=== PATIENT | female | born 1955 | race Caucasian/White ===

== ENCOUNTER 2019-06-02 13:57 | Observation (INO) | payer OTHER ==
[2019-06-02] MEDS ORDERED: NS 0.9% 1000 ML** 1,000 ML IV ONE (14:11)
[2019-06-02] MEDS ORDERED: Piperacillin/Tazobac ADVAN(*) 3.375 GM in NS 0.9% 100 ML* 100 ML IVPB ONE (14:11)
--- NOTE | 2019-06-02 14:23 | ED ---
Abdominal Pain/Female - HPI Summary HPI Summary: This patient is a 63 year old F presenting to [facility] accompanied by with a chief complaint of abdominal pain since 1406. Patient states that she has RLQ pain that radiates to the center of her stomach and over to her LLQ. Patient states that she was sent here by Dr. Amor to be sent to the OR with a dx of appendicitis. The patient rates the pain 6/10 in severity. Symptoms aggravated by nothing. Symptoms alleviated by nothing. Patient reports RLQ tenderness and diaphoresis. Patient denies fever. Allergies Allergy/AdvReac Type Severity Reaction Status Date / Time No Known Allergies Allergy Verified 06/02/19 14:08 - History of Current Complaint Chief Complaint: EDAbdPain Stated Complaint: ABDOMINAL PAIN PER PT Time Seen by Provider: 06/02/19 14:08 Hx Obtained From: Patient, Family/Python Programmer - ?: No Onset/Duration: Sudden Onset, Lasting Minutes - 1406, Still Present Timing: Constant Severity Currently: Moderate Pain Intensity: 6 Pain Scale Used: 0-10 Numeric Location: Diffuse, Discrete At: RUQ Radiates: Yes Radiates to: LLQ Character: Sharp Aggravating Factor(s): Nothing Alleviating Factor(s): Nothing Associated Signs and Symptoms: Positive: Diaphoresis. Negative: Fever Allergies/Adverse Reactions: Allergies Allergy/AdvReac Type Severity Reaction Status Date / Time No Known Allergies Allergy Verified 06/02/19 14:08 Home Medications: Home Medications Simvastatin TAB(NF) [Zocor(NF)] 20 mg PO BEDTIME 06/02/19 [History Confirmed ] PMH/Surg Hx/FS Hx/Imm Hx Sensory History: Denies: Hx Legally Blind, Hx Deafness Opthamlomology History: Denies: Hx Legally Blind EENT History: Denies: Hx Deafness - Surgical History Surgical History: None Infectious Disease History: No Infectious Disease History: Denies: Traveled Outside the [place] in Last 30 Days - Family History Known Family History: Positive: Other - dementia Negative: Hypertension, Diabetes, Blood Disorder - Social History Alcohol Use: Occasionally Substance Use Type: Reports: None Hx Tobacco Use: No Review of Systems Positive: Skin Diaphoresis. Negative: Fever Positive: Abdominal Pain - RLQ All Other Systems Reviewed And Are Negative: Yes Physical Exam - Summary Physical Exam Summary: Constitutional: Well-developed, Well-nourished, Alert. (-) Distressed Skin: Warm, Dry HENT: Normocephalic; Atraumatic Eyes: Conjunctiva normal Neck: Musculoskeletal ROM normal neck. (-) JVD, (-) Stridor, (-) Tracheal deviation Cardio: Rhythm regular, rate normal, Heart sounds normal; Intact distal pulses; The pedal pulses are 2+ and symmetric. Radial pulses are 2+ and symmetric. (-) Murmur Pulmonary/Chest wall: Effort normal. (-) Respiratory distress, (-) Wheezes, (-) Rales Abd: Soft, RLQ tenderness, (-) Distension, (-) Guarding, (-) Rebound Musculoskeletal: (-) Edema Lymph: (-) Cervical adenopathy Neuro: Alert, Oriented x3 Psych: Mood and affect Normal Triage Information Reviewed: Yes Vital Signs On Initial Exam: Initial Vitals Temp Pulse Resp BP Pulse Ox 100.4 F 103 18 151/79 98 06/02/19 14:07 06/02/19 14:07 06/02/19 14:07 06/02/19 14:07 06/02/19 14:07 Vital Signs Reviewed: Yes Diagnostics - Vital Signs Vital Signs Temp Pulse Resp BP Pulse Ox 06/02/19 14:07 100.4 F 103 18 151/79 98 - Laboratory Lab Statement: Any lab studies that have been ordered have been reviewed, and results considered in the medical decision making process. Abdominal Pain Fem Course/Dx - Course Course Of Treatment: Patient was sent to the ED to be sent to the OR by Dr. Amor with a Dx of Appendicitis. - Diagnoses Provider Diagnoses: Appendicitis Discharge ED - Sign-Out/Discharge Documenting (check all that apply): Patient Departure - admit Patient Received Moderate/Deep Sedation with Procedure: No - Discharge Plan Condition: Stable Disposition: ADMITTED TO [facility] - Attestation Statements Document Initiated by Scribe: Yes Documenting Scribe: Marianne Begum Provider For Whom Scribe is Documenting (Include Credential): Dr. Maged Us MD Scribe Attestation: Marianne Santacruz, scribed for Dr. Maged Us MD on 06/02/19 at 1835. Status of Scribe Document: Ready
[2019-06-02] MEDS ORDERED: HYDROmorphone INJ* 0.5 MG/0.5 ML SYRINGE IV SLOW PU PRN (15:11)
[2019-06-02] MEDS ORDERED: Ondansetron INJ* 2 MG/ML VIAL IV PRN (15:11)
[2019-06-02] MEDS ORDERED: NS 0.9% 1000 ML** 1,000 ML IV SCH (15:15)
--- NOTE | 2019-06-02 16:42 | HP ---
HISTORY AND PHYSICAL: DATE OF ADMISSION: 06/02/19 ATTENDING PHYSICIAN: Dr. Scott Amor.* (DICTATED BY ARIANA GILLILAND PA-C) HISTORY OF PRESENT ILLNESS: The patient presented to the emergency room at [facility] after being seen in [facility] and being referred to Dr. Amor's office for a complaint of right lower quadrant pain, nausea, recent onset consistent with appendicitis. The patient originally rated her symptomatology as 8/10. The patient currently reports her symptomatology at 6/ 10 in severity. The patient has reported nausea mildly last evening, this morning complained of nausea with accompanying periumbilical pain and right lower quadrant pain. Onset was gradual. The course is continuous. The characterization was a sharp consistent pain. Degree at onset was 8/10, degree now is 6/10 on a 10 scale. Location limited to the McBurney's point in the right lower quadrant. Pain does not seem to radiate. Nothing exacerbates it and nothing relieves it. She has not eaten since dinner last night. She is from [place] and is traveling with her who is at bedside. PAST SURGICAL HISTORY: No history of previous surgeries. COMPOUND SPECIALIST HISTORY: The patient reports menopause into her mid 50s. MEDICATIONS: Currently takes a statin for hypercholesterolemia. ALLERGIES: The patient reports no known drug allergies. SOCIAL HISTORY: Denies smoking. Rarely uses alcohol. Denies recreational drug use. REVIEW OF SYSTEMS: Cardiovascular: Negative. Pulmonary: Negative. : Negative. Endocrine: Negative. Musculoskeletal: Negative. Neurological: Negative. Psychological: Negative. Hematological: No coagulable problems. No history of infectious diseases. GI + nausea, - vomit, + abdominal Pain RLQ The patient is currently n.p.o. PHYSICAL EXAMINATION GENERAL: Well-developed, well-nourished female, looks her appropriate age, in no acute distress [facility]. VITAL SIGNS: On admission to the emergency department, temp 100.4, pulse 103, respirations 18, BP 151/79, pulse ox 98% on room air. HEENT: Normocephalic, atraumatic. no icterus. NECK: Trachea midline. Supple. CHEST: Clear to auscultation bilaterally. CVS: tachycardic rate and rhythm ABDOMEN: Nondistended. Soft There is positive tenderness at McBurney's point in the right lower quadrant to deep palpation. Negative Licea's. Hypoactive bowel sounds. No referred pain. MUSCULOSKELETAL: Moves all extremities with full range of motion. Calves are soft bilaterally. NEURO: Alert and oriented x3. PSYCH: Normal mood and affect. SKIN: Warm and dry. DIAGNOSTIC STUDIES/LAB DATA: Laboratory studies showed white count of 6.8. CT scan done at [facility] reportedly was consistent with acute appendicitis. ASSESSMENT: A 63-year-old white female with CT findings and physical examination findings consistent with acute appendicitis. PLAN: 1. The patient will continued to be n.p.o. 2. IV fluids normal saline at 150 cc per hour. 3. IV Zosyn. 4. The patient will be admitted, transferred to the surgical care unit until surgery by Dr. Amor, for a laparoscopic appendectomy . Continue n.p.o. status, IV pain management. The above discussed with Dr. Amor. TIME SPENT: A total of 60 minutes was spent reviewing laboratory studies, examining the patient, and coordination of care. ARIANA GILLILAND PA-C [id number]/[facility] #: [id number] GUY
[2019-06-02] MEDS ORDERED: Buffered Lidocaine 1% SYRIN* 1 ML/SYRINGE INTRADERM ONE (19:31)
[2019-06-02] MEDS ORDERED: Lactated Ringers 1000 ML Bag* 1,000 ML IV SCH (20:00)
[2019-06-03] MEDS ORDERED: Famotidine IV* 10 MG/ML 2 ML (20 mg) ONE (00:08)
[2019-06-03] MEDS ORDERED: Midazolam* 1 MG/ML 2 ML VIAL (2 MG) ONE (00:09)
[2019-06-03] MEDS ORDERED: Propofol* 10 MG/ML 20 ML BTL ONE (00:09)
[2019-06-03] MEDS ORDERED: Ondansetron INJ* 2 MG/ML VIAL ONE (00:09)
[2019-06-03] MEDS ORDERED: Dexamethasone IV* 4 MG/ML 1 ML (4 MG) ONE (00:09)
[2019-06-03] MEDS ORDERED: Succinylcholine* 20 MG/ML 10 ML VIAL ONE (00:09)
[2019-06-03] MEDS ORDERED: fentaNYL* 50 MCG/ML 2 ML VIAL (100 MCG VIAL) ONE ×2 (00:09→02:15)
[2019-06-03] MEDS ORDERED: Cisatracurium* 2 MG/ML MDV 5 ML ONE (00:10)
[2019-06-03] MEDS ORDERED: Lidocaine 2% PF * 5 ML VIAL ONE (00:10)
[2019-06-03] MEDS ORDERED: Bupivacaine 0.25% W/EPI* 10 ML SDV ONE ×2 (00:30)
[2019-06-03] MEDS ORDERED: ZOSYN 3.375 GM x ONE DOSE over 30 miuntes IVPB ×2 (01:00)
[2019-06-03] MEDS ORDERED: HYDROcodone/ACETAMIN 5-325 MG* 1 TAB PO PRN (01:44)
[2019-06-03] MEDS ORDERED: fentaNYL* 50 MCG/ML 2 ML VIAL (100 MCG VIAL) IV PRN (01:44)
[2019-06-03] MEDS ORDERED: diPHENhydraMINE IV* 50 MG/ML 1 ml VIAL (BENADRYL) IV PRN (01:44)
[2019-06-03] MEDS ORDERED: DiMENhydriNATE IV* 50 MG/ML VIAL IV PUSH PRN (01:44)
[2019-06-03] MEDS ORDERED: Acetaminophen TAB* 325 MG PO PRN ×2 (01:44→08:16)
[2019-06-03] MEDS ORDERED: Naloxone* 0.4 MG/ML 1 ML VIAL IV PRN (01:44)
[2019-06-03] MEDS ORDERED: Ketorolac INJ* 30 MG/ML 1 ML VIAL ONE (02:29)
--- NOTE | 2019-06-03 02:29 | OP ---
Operative Report - Blank - Operative Report Date of Operation: 06/03/19 Note: Pre-OP Diagnoses: acute appendicitis Post-op Diagnosis: same Procedure: Laparoscopic appendectomy Surgeon: Mt Asst: none Anethesia: GETA EBL: minimal IVF: 1000ccLR Specimen: appendix Drains: none
[2019-06-03] MEDS ORDERED: NS 0.9% 1000 ML** 1,000 ML IV SCH (03:45)
--- NOTE | 2019-06-03 05:31 | OP ---
CC: [facility]; primary care doctor * DATE OF SURGERY: 06/03/19 - ROOM #[id number] DATE OF : 57 SURGEON: Scott Amor MD RATE SETTER: None. ANESTHESIOLOGIST: Dr. Steen. ANESTHESIA: General anesthesia. PRE-OP DIAGNOSIS: Acute appendicitis. POST-OP DIAGNOSIS: Acute appendicitis. PROCEDURE: Laparoscopic appendectomy. ESTIMATED BLOOD LOSS: Minimal. FLUIDS: Minimal crystalloid fluid given. SPECIMEN: Appendix. DRAINS: None. INDICATIONS: The patient is a 63-year-old female who I have seen in my office after she was discharged from the ER at [facility] to be evaluated. I recommended laparoscopic appendectomy after evaluation of diagnosis of acute appendicitis based on review of CAT scan and examination of the patient. The patient was sent to the emergency room for logistical purposes and was admitted to the hospital. She was started on a course of antibiotics. I outlined the details of the procedure going over the risks, benefits, and alternatives of laparoscopic appendectomy. Discussed the possible complications , which include but not limited to bleeding, infection, bowel injury, bladder injury, injury to adjacent organs, bleeding, infection, and need for additional surgeries or open procedure. The patient willingly signed consent. DESCRIPTION OF PROCEDURE: She was marked, taken to the preoperative room, placed on the operating table in supine position. Preoperative antibiotics were given. Sequential devices were placed on bilateral lower extremities. General anesthesia was induced. The patient's abdomen was prepped and draped in a standard surgical fashion. A time-out was performed. The folds of the umbilicus were elevated anteriorly, and a Veress needle was inserted into the abdominal cavity which was then allowed to insufflate to a pressure of 15 mmHg. The patient tolerated the insufflation well. A right upper quadrant incision was made and a 12-mm optical trocar was inserted. Laparoscope was then inserted through this. There was no evidence of injury from the trocar insertion or from the Veress needle, which were removed. Umbilical incision was made and a 5-mm trocar placed at this site. We shifted the camera here and then placed another 5-mm in the suprapubic area. These were all under direction vision. Review of the abdomen showed scant purulent fluid and appendix that was curled up and adhered to the distal ileum. It appeared nonperforated. This was grasped and a window made at the base of the appendix through healthy tissue and a 30 mm freedman HUE stapling device was fired across this area. We utilized cautery to dissect some of the mesoappendix at the base of the appendix and then took a 45 mm hutchison HUE stapling device for mesoappendix. Appendix was then placed in endoscopic retrieval bag. Review of the abdomen showed no bleeding or enteric contents. We suctioned out the scant fluid that was in the pelvis as well as in the right paracolic gutter. We looked over the liver, there is no fluid or at the left upper quadrant. That was positioned to neutral. The appendix was removed through an endoscopic retrieval bag through the right upper quadrant port site. The abdomen allowed to collapse and all 3 trocars removed under direct vision and these incisions closed with 4-0 Monocryl subcuticular sutures followed by Steri- Strips and sterile dressing. The patient tolerated the procedure well, was woken up in the OR. [id number]/[facility] #: [id number] [facility] CENT[facility]oxi
--- NOTE | 2019-06-03 08:36 | PN ---
Progress Note - Progress Note Date of Service: 06/03/19 SOAP: Subjective:hungry,minimal pain,voiding ,ambulating [] Objective: Vital Signs Temp 98.3 F 06/03/19 07:18 Pulse 93 06/03/19 07:18 Resp 16 06/03/19 08:06 BP 119/62 06/03/19 07:18 Pulse Ox 95 06/03/19 07:18 Intake & Output 06/02/19 06/03/19 06/03/19 18:59 06:59 18:59 Intake Total 2400 Output Total 100 1300 Balance -100 1100 Weight 150 lb Intake: IV Fluids 2160 NS (0.9%) 910 NS 100ML, Zosyn 3.375G 100 lr 1000 ns 100 zosyn 50 Oral 240 Output: Urine 100 1300 lungs:clear bilat;heart:RRR;abd:+bs,soft,appropriate incisional tenderness; incisions intact with steris,clean and dry;ext:nontender [] Assessment:POD#0 s/p laparoscopic appendectomy,doing well,wants to go home later ;tolerating reg diet;stable [] Plan:discharge home after lunch;she will followup with PCP in [place];she declines opioid rx,prefers to use Tylenol;instructions reviewed []
[2019-06-03] MEDS ORDERED: Piperacillin/Tazobac ADVAN(*) 3.375 GM in NS 0.9% 100 ML* 100 ML IVPB SCH (09:30)
[2019-06-03 11:09] VITALS: BP 111/59
--- NOTE | 2019-06-03 12:18 | DS ---
AMENDED REPORT NOW INCLUDES DESIGNATED COSIGNER DISCHARGE SUMMARY: DATE OF ADMISSION: 06/02/19 DATE OF DISCHARGE: 06/03/19 ATTENDING SURGEON: Dr. Scott Amor.* (DICTATED BY AVANI FERNANDEZ NP) HOSPITAL COURSE: Please refer to admission history and physical for admission details. The patient was taken to the operating room in the breast trimmer hours of 06/03/19 and underwent laparoscopic appendectomy. She has had an uneventful postoperative course, and as of the day of discharge, she was tolerating a regular diet, she was ambulating in the halls, she was voiding without difficulty and she had minimal pain, which was well controlled. PHYSICAL EXAMINATION: Vital Signs: Temperature 98.3, heart rate 77, respiratory rate 18, O2 saturation 96%, blood pressure 119/62. General: Well nourished and in no acute distress, sitting up on the edge of the bed. Lungs: Breath sounds bilaterally clear and equal. Heart: Regular rate and rhythm. No murmurs or rubs appreciated. Abdomen: Active bowel sounds, soft, and nondistended. Laparoscopic incision sites are intact with Steri-Strips, 2x2 gauze, pads, and Tegaderm; there is no active bleeding or drainage or surrounding erythema. Her abdomen is appropriately tender around the incisions. Extremities are nontender with no edema. CONDITION: Stable. IMPRESSION: Status post laparoscopic appendectomy, doing well and appropriate for discharge. PLAN: Discharge home today; she is visiting from [place], [place], and therefore she will have postoperative followup at her primary care office within 7 to 10 days of discharge. All of the discharge instructions were reviewed with her, all of her questions were answered and appropriate pain management was discussed and appropriate prescriptions were sent. AVANI FERNANDEZ NP [id number]/[facility] #: [id number] GUY
--- NOTE | 2019-06-06 16:02 | PN ---
Progress Note - Progress Note Date of Service: 06/02/19 Note: Addendum to History and Physical dictated on 06/02/19 PMH was omitted Past Medical History: Elevated Cholesterol Prasanth Narayanan PA-C
== END 2019-06-03 11:30 | disposition home or self-care (01) ==
LOC: OR 13:57 → SSU 15:11
PROVIDERS: ADMIT Surgery; ATTEND Surgery
DX: K35.80 Unspecified acute appendicitis (principal); R10.31 Right lower quadrant pain; Z79.899 Other long term (current) drug therapy
CPT/HCPCS: 88304; 99282; G0378; J0330; J1100; J1885; J2250; J2405; J2543; J2704; J3010